=== PATIENT | male | born 1950 | race Caucasian/White ===

== ENCOUNTER → 2019-02-05 | Outpatient (CLI) | payer OTHER ==
[~2019-02-05] MED LIST: ALBU8.5H8 IH; ALLO100T PO; APIX5TAB PO; ASPI-555 PO; BUDE10.2 IH; BUSP15TA3 PO; DULO30CA52 PO; FLUO20TA29 PO; FOLI1TAB15 PO; GABA-531 PO; MIRT30TA6 PO; QUET50TA55 PO; ROPI1TAB11 PO; TAMS-1 PO; THEO400T3 PO; THIA100T75 PO; TIOT18CA3 IH; TOPI100T37 PO; [UNRECOGNIZED DRUG - OTHER] IH
== END | disposition home or self-care (01) ==
LOC: SHCH 14:56
PROVIDERS: ATTEND Internal Medicine Cardiovascular Disease
DX: I34.9 Nonrheumatic mitral valve disorder, unspecified (principal)
CPT/HCPCS: 93306

== ENCOUNTER 2019-02-09 08:59 | Day surgery (SDC) | payer OTHER ==
[2019-02-09] VITALS (13 sets, daily range): BP systolic 114–154; BP diastolic 68–85
[~2019-02-09] VITALS: Ht 182.9 cm; Wt 97.5 kg
[~2019-02-09 08:59] MED LIST changes: -ALBU8.5H8 IH; -ASPI-555 PO; -BUDE10.2 IH; -BUSP15TA3 PO; -DULO30CA52 PO; -GABA-531 PO; -MIRT30TA6 PO; -ROPI1TAB11 PO; +SODIUM CHLORIDE 0.9% 1000ML 1,000 ML IV ONE; -TAMS-1 PO; -THEO400T3 PO
[2019-02-09 12:07] LABS: BASOPHILS % (AUTO) 0.5 % (0.0-5.0); EOSINOPHILS % (AUTO) 0.9 % (0.0-8.0); HEMATOCRIT 34.6 % (42-54); LYMPHOCYTES % (AUTO) 10.6 % (21.0-51.0); MEAN CORPUSCULAR HEMOGLOBIN 34.6 pg (27.0-33.0); MEAN CORPUSCULAR HGB CONC 35.1 g/dL (32.0-36.0); MEAN CORPUSCULAR VOLUME 98.6 fL (79-99); MONOCYTES % (AUTO) 8.6 % (3.0-13.0); NEUTROPHILS % (AUTO) 79.4 % (40.0-77.0); PLATELET COUNT (AUTO) 219 K/uL (130-400); RED BLOOD CELL COUNT(AUTO) 3.51 MIL/uL (4.50-6.20); RED CELL DISTRIBUTION WIDTH 15.4 % (11.0-15.5); WHITE BLOOD COUNT (AUTO) 7.6 K/uL (4.8-10.8)
[2019-02-09 12:17] LABS: CREATININE 1.7 mg/dL (0.5-1.5); POTASSIUM 3.5 mmol/L (3.5-5.1)
[2019-02-09] MEDS ORDERED: ASPI-555 PO (12:43)
[2019-02-09] MEDS ORDERED: BUSP15TA3 PO (12:43)
[2019-02-09] MEDS ORDERED: ALBU8.5H8 IH (12:43)
[2019-02-09] MEDS ORDERED: TAMS-1 PO (12:43)
[2019-02-09] MEDS ORDERED: DULO30CA52 PO (12:43)
[2019-02-09] MEDS ORDERED: ROPI1TAB11 PO (12:43)
[2019-02-09] MEDS ORDERED: THEO400T3 PO (12:43)
[2019-02-09] MEDS ORDERED: GABA-531 PO (12:43)
[2019-02-09] MEDS ORDERED: BUDE10.2 IH (12:43)
[2019-02-09] MEDS ORDERED: MIRT30TA6 PO (12:43)
[2019-02-09] MEDS ORDERED: SUCCINYLCHOLINE 200MG/10ML SYR ONE (13:08)
[2019-02-09] MEDS ORDERED: PROPOFOL 10 MG/ML 20ML VIAL IV ONE (13:08)
== END 2019-02-09 14:50 | disposition home or self-care (01) ==
LOC: ENDO 08:59 → DAH 08:59 → ENDO 14:50
PROVIDERS: ATTEND Internal Medicine
DX: K20.9 Esophagitis, unspecified (principal); K31.6 Fistula of stomach and duodenum; K31.89 Other diseases of stomach and duodenum; K94.20 Gastrostomy complication, unspecified; I11.0 Hypertensive heart disease with heart failure; M81.0 Age-related osteoporosis without current pathological fracture; Z80.0 Family history of malignant neoplasm of digestive organs; I50.20 Unspecified systolic (congestive) heart failure; J44.9 Chronic obstructive pulmonary disease, unspecified; F41.9 Anxiety disorder, unspecified; F32.9 Major depressive disorder, single episode, unspecified; D64.9 Anemia, unspecified; Z95.1 Presence of aortocoronary bypass graft; Z85.21 Personal history of malignant neoplasm of larynx; Z79.899 Other long term (current) drug therapy; E78.5 Hyperlipidemia, unspecified
CPT/HCPCS: 36415; 43235; 80048; 85025; A4606; A4649; J0330; J2704; J7030